=== PATIENT | male | born 1995 | race Caucasian/White ===

== ENCOUNTER 2017-05-31 23:16 | Emergency (ER) | payer OTHER ==
[2017-05-31 23:29] VITALS: BP 125/72; PULSE 55; TEMP 97.3; BMI 23.0
[2017-05-31] MEDS ORDERED: ONDANSETRON 4 MG/2 ML VIAL IVPUSH ONE (23:42)
[2017-05-31] MEDS ORDERED: SODIUM CHLORIDE 0.9% 1000 ML INFUS.BAG IV ONE (23:43)
[2017-06-01] MEDS ORDERED: ONDANSETRON 4 MG/2 ML VIAL ONE (00:16)
[2017-06-01] MEDS ORDERED: PANTOPRAZOLE SODIUM 40 MG VIAL IVPUSH ONE (00:27)
--- NOTE | 2017-06-01 00:29 | PDOC ---
History of Present Illness - General Chief Complaint: Nausea/Vomiting Stated Complaint: VOMITING Time Seen by Provider: 05/31/17 23:41 - History of Present Illness Initial Comments: 06/01/17 00:28 CHIEF COMPLAINT: vomiting HISTORY OF PRESENT ILLNESS: 22 yo M with no PMH presents to ED with abdominal pain and vomiting since tonight after eating dinner with family for his birthday. Patient denies any recent travel or sick contacts. Patient states he ate mussels, chicken salad, and pizza. Patient reports feeling a "burning sensation to my chest." PAST MEDICAL HISTORY: Denies past medical history FAMILY HISTORY: Denies SOCIAL HISTORY: Denies tobacco, alcohol, illicit drug use. SURGICAL HISTORY: Denies ALLERGIES: No known drug allergies REVIEW OF SYSTEMS General/Constitutional: Denies fever or chills. Denies weakness. HEENT: Denies change in vision. Denies ear pain or discharge. Denies sore throat. Cardiovascular: Denies chest pain or shortness of breath. Respiratory: Denies cough, wheezing, or hemoptysis. Gastrointestinal: Vomting tonight. Denies diarrhea. Genitourinary: Denies dysuria, frequency, or change in urination. Musculoskeletal: Denies joint or muscle swelling or pain. Denies neck or back pain. Skin and breasts: Denies rash or easy bruising. PHYSICAL EXAM General Appearance: Well-appearing, appropriately dressed. No apparent distress. HEENT: EOMI, PERRLA. No conjunctival pallor. No photophobia, scleral icterus. ] Respiratory/Chest: Lungs CTAB. Cardiovascular: RRR. S1, S2. Gastrointestinal/Abdominal: Normal bowel sounds. Abdomen soft, non-distended. No tenderness or rebound tenderness. No organomegaly, pulsatile mass, guarding , hernia, hepatomegaly, splenomegaly. Musculoskeletal/Extremities: Normal inspection. FROM of all extremities, normal capillary refill. Pelvis Stable. No CVA tenderness. No tenderness to extremities, pedal edema, swelling, erythema or deformity. Integumentary: Appropriate color, dry, warm. No cyanosis, erythema, jaundice or rash Neurologic: news editor II-XII intact. Fully oriented, alert. Appropriate mood/affect. Motor strength 5/5. No appreciable EOM palsy, facial droop or sensory deficit. ] Past History - Past Medical History Allergies/Adverse Reactions: Allergies Allergy/AdvReac Type Severity Reaction Status Date / Time No Known Allergies Allergy Verified 05/21/16 19:36 Home Medications: Ambulatory Orders Ondansetron [Zofran *Odt*] 8 mg SL TID PRN #21 od.tablet 06/01/17 Pantoprazole Sodium [Protonix] 40 mg PO DAILY #14 tablet. 06/01/17 - Suicide/Smoking/Psychosocial Hx Smoking History: Current every day smoker Have you smoked in the past 12 months: No Number of Cigarettes Smoked Daily: 5 Information on smoking cessation initiated: No Hx Alcohol Use: No Drug/Substance Use Hx: No Substance Use Type: None *Physical Exam - Vital Signs Last Vital Signs Temp Pulse Resp BP Pulse Ox 97.3 F L 55 L 18 125/72 100 05/31/17 23:23 05/31/17 23:23 05/31/17 23:23 05/31/17 23:23 05/31/17 23:23 ED Treatment Course - Medications Given in the ED: ED Medications Discontinued Medications Generic Name Dose Route Start Last Admin Trade Name Freq PRN Reason Stop Dose Admin Ondansetron HCl 4 mg 05/31/17 23:42 06/01/17 00:25 Zofran Injection IVPUSH 05/31/17 23:43 4 mg ONCE ONE Administration Sodium Chloride 1,000 ml 05/31/17 23:43 06/01/17 00:25 Normal Saline - IV 05/31/17 23:44 1,000 ml ONCE ONE Administration Medical Decision Making - Medical Decision Making 06/01/17 00:32 22 yo M with no PMH presents to ED with abdominal pain and vomiting since tonight after eating dinner with family for his birthday. -IVF, zofran, pepcid, protonix *DC/Admit/Observation/Transfer Diagnosis at time of Disposition: Gastroenteritis - Discharge Dispostion Disposition: HOME Condition at time of disposition: Stable Admit: No - Prescriptions Prescriptions: Ondansetron [Zofran *Odt*] 8 mg SL TID PRN #21 od.tablet PRN Reason: Nausea And/Or Vomiting Pantoprazole Sodium [Protonix] 40 mg PO DAILY #14 tablet. - Referrals Referrals: Peyton Ewing MD [Primary Care Provider] - - Patient Instructions Printed Discharge Instructions: DI for Vomiting -- Adult, DI for Gastroesophageal Reflux Disease (GERD) Additional Instructions: Please take medications as prescribed. Follow up with your primary care doctor by the end of next week. If you develop any persistent vomiting, fever, chills , diarrhea, or any new or worsening symptoms, please return to the ER. - Post Discharge Activity
[2017-06-01] MEDS ORDERED: FAMOTIDINE IV 20 MG/12 ML VIAL IVPUSH SCH (00:30)
[2017-06-01] MEDS ORDERED: FAMOTIDINE 20 MG/50 ML IVPB 20 MG/50 ML MG IVPB ONE (00:45)
[2017-06-01] MEDS ORDERED: PANTOPRAZOLE SODIUM 40 MG/100 ML BAG IVPB ONE (00:45)
--- NOTE | 2017-06-01 00:52 | PDOC ---
*Physical Exam - Vital Signs Last Vital Signs Temp Pulse Resp BP Pulse Ox 97.3 F L 55 L 18 125/72 100 05/31/17 23:23 05/31/17 23:23 05/31/17 23:23 05/31/17 23:23 05/31/17 23:23 ED Treatment Course - Medications Given in the ED: ED Medications Discontinued Medications Generic Name Dose Route Start Last Admin Trade Name Freq PRN Reason Stop Dose Admin Ondansetron HCl 4 mg 05/31/17 23:42 06/01/17 00:25 Zofran Injection IVPUSH 05/31/17 23:43 4 mg ONCE ONE Administration Pantoprazole Sodium 40 mg 06/01/17 00:27 06/01/17 00:48 Protonix Iv IVPUSH 06/01/17 00:28 40 mg ONCE ONE Administration Sodium Chloride 1,000 ml 05/31/17 23:43 06/01/17 00:25 Normal Saline - IV 05/31/17 23:44 1,000 ml ONCE ONE Administration Medical Decision Making - Medical Decision Making 06/01/17 00:52 agree with care from DI [facility] *DC/Admit/Observation/Transfer Diagnosis at time of Disposition: Gastroenteritis - Discharge Dispostion Disposition: HOME Condition at time of disposition: Stable - Prescriptions Prescriptions: Ondansetron [Zofran *Odt*] 8 mg SL TID PRN #21 od.tablet PRN Reason: Nausea And/Or Vomiting Pantoprazole Sodium [Protonix] 40 mg PO DAILY #14 tablet.dr - Referrals Referrals: Peyton Ewing MD [Primary Care Provider] - - Patient Instructions Printed Discharge Instructions: DI for Gastroesophageal Reflux Disease (GERD), DI for Vomiting -- Adult Additional Instructions: Please take medications as prescribed. Follow up with your primary care doctor by the end of next week. If you develop any persistent vomiting, fever, chills , diarrhea, or any new or worsening symptoms, please return to the ER. - Post Discharge Activity
== END 2017-06-01 02:26 | disposition home or self-care (01) ==
LOC: JER 23:16
PROC: 3E033GC Introduction of Other Therapeutic Substance into Peripheral Vein, Percutaneous Approach (ICD-10-PCS; principal; 2017-05-31)
DX: K52.9 Noninfective gastroenteritis and colitis, unspecified (principal)
CPT/HCPCS: 99281-25

== ENCOUNTER 2018-02-20 19:54 | Emergency (ER) | payer OTHER ==
[2018-02-20] MEDS ORDERED: ONDANSETRON *ODT* 4 MG TABLET SL ONE (20:05)
--- NOTE | 2018-02-20 20:05 | PDOC ---
Rapid Medical Evaluation Chief Complaint: Nausea/Vomiting Time Seen by Provider: 02/20/18 20:03 Medical Evaluation: Allergies Allergy/AdvReac Type Severity Reaction Status Date / Time No Known Allergies Allergy Verified 05/21/16 19:36 02/20/18 20:03 c/o nausea vomiting after eating sandwich half hour prior to arrival PE: patient alert ox3 A; gastroenteritis P: zofran patient to the ER further management of care. 02/20/18 20:05 Discharge Disposition - Diagnosis Gastroenteritis - Referrals - Patient Instructions - Post Discharge Activity
[2018-02-20 20:06] VITALS: BP 134/68; PULSE 72; TEMP 97.8; BMI 21.7
[2018-02-20] MEDS ORDERED: ONDANSETRON *ODT* 4 MG TABLET ONE (20:40)
--- NOTE | 2018-02-20 20:53 | PDOC ---
History of Present Illness - General Chief Complaint: Nausea/Vomiting Stated Complaint: Nausea/Vomiting/ABD PAIN Time Seen by Provider: 02/20/18 20:03 History Source: Patient, Parent(s) (Mother present for interview.) Exam Limitations: No Limitations - History of Present Illness Initial Comments: 22 y/o male presenting to [facility] ER via private auto complaining of nausea, vomiting, and diarrhea for the past two hours. Endorses subjective fever, chills , and diaphoresis. Symptoms started after he ate a sandwich from a restaurant. Emesis described as mostly containing food particulate, nonbloody and nonbilious. Diarrhea described as watery and nonbloody. Pt denies abdominal pain , lightheadedness, dizziness, chest pain, or syncope. Pt took PO Zofran prior to arrival but vomited shortly after. PCP: [facility] Hx: - Pt denies past medical history. Denies prescription medications. Surgical Hx: - Pt denies surgical history. Social Hx: - EtOH: Infrequent. - Tobacco: smokes 6 cigerettes per day. - Street Drugs: Denies Past History - Past Medical History Allergies/Adverse Reactions: Allergies Allergy/AdvReac Type Severity Reaction Status Date / Time No Known Allergies Allergy Verified 02/20/18 20:06 Home Medications: Ambulatory Orders Ondansetron [Zofran *Odt*] 8 mg SL TID PRN #21 od.tablet 02/20/18 COPD: No - Suicide/Smoking/Psychosocial Hx Smoking History: Never smoked Have you smoked in the past 12 months: No Number of Cigarettes Smoked Daily: 5 Information on smoking cessation initiated: No Hx Alcohol Use: No Drug/Substance Use Hx: No Substance Use Type: None Review of Systems - Review of Systems Able to Perform ROS?: Yes Is the patient limited Hungarian proficient: No Constitutional: Yes: Chills, Diaphoresis, Fever HEENTM: No: Recent change in vision, Throat Swelling, Mouth Pain, Difficulty Swallowing, Mouth Swelling Respiratory: No: Shortness of Breath Cardiac (ROS): No: Chest Pain, Lightheadedness, Palpitations, Syncope ABD/GI: Yes: See HPI, Diarrhea, Nausea, Vomiting, Indigestion. No: Blood Streaked Bowels, Constipated, Rectal Bleeding, Abdominal cramping : No: Burning, Dysuria, Discharge, Frequency, Flank Pain, Hematuria Musculoskeletal: No: Back Pain Integumentary: No: Bruising, Erythema, Rash Neurological: No: Headache, Numbness, Paresthesia, Weakness, Dizziness Hematologic/Lymphatic: No: Easy Bleeding, Easy Bruising *Physical Exam - Vital Signs Last Vital Signs Temp Pulse Resp BP Pulse Ox 97.8 F 72 16 134/68 100 02/20/18 20:05 02/20/18 20:05 02/20/18 20:05 02/20/18 20:05 02/20/18 20:05 - Physical Exam Comments: Constitutional: Well-developed, well-nourished male in no acute distress but obvious discomfort. Found sitting upright on edge of hospital bed. Alert and oriented x4. Answered all questions appropriately and completely. Speech was non -labored, non-pressured. Pt actively vomited without intense retching during exam, no blood or bile. HEENT: Normocephalic. No obvious external signs of trauma. Hearing grossly normal. No nasal discharge. Sclerae white. Conjunctiva moist and not injected. Oral cavity and pharynx normal. No inflammation, swelling, exudate, or lesions. Teeth and gingiva in good general condition. Neck is supple, trachea is midline. No JVD. Cardiovascular: Regular rate and regular rhythm. No murmur, rubs, clicks, or gallops. Peripheral pulses: Radial pulses full. Respiratory: Breathing unlabored. Equal chest rise and fall. Clear to auscultation bilaterally. No stridor, no wheezing, no rhonchi. Gastrointestinal: abdomen is soft, non-tender, non-distended. No hepatosplenemegaly. No pulsatile masses. No overlying skin lesions or obvious signs of trauma. Neuro: Alert and oriented. Moving all four extremities spontaneously. Skin: Warm, dry, and intact. No bruising, rashes, or other lesions. : No R or L CVA tenderness. Psych: Affect: appropriate. Mood: normal. ED Treatment Course - LABORATORY CBC & Chemistry Diagram: 02/20/18 21:25 02/20/18 21:25 - Medications Given in the ED: ED Medications Discontinued Medications Generic Name Dose Route Start Last Admin Trade Name Freq PRN Reason Stop Dose Admin Ondansetron HCl 4 mg 02/20/18 20:05 02/20/18 20:44 Zofran Odt - SL 02/20/18 20:06 4 mg ONCE ONE Administration Medical Decision Making - Medical Decision Making *Reviewed nursing notes and prior visit documentation. 22 y/o complaining of nausea, vomiting, and diarrhea for the past two hours. No pertinent PMH. Afebrile. Vitals unremarkable for hypotension or tachycardia. Benign physical exam. Suspect likely viral gastroenteritis. Low suspicion for Boerhaave's syndrome. Low suspicion for neurogenic cause. Low suspicion for hepatitis, pancreatitis, cholecystitis without abdominal pain. Will treat symptomatically with ODT zofran. Suspect pt vomited up PO zofran taken prior to arrival. Pt vomited and spit out ODT zofran. Will give IV zofran and NS IVFB. Will obtain CBC and BMP. Low suspicion for metabolic derangement or hepatitis. CBC revealed mild leukocytosis. Suspect secondary to vomiting. No prior results to compare. CMP unremarkable for electrolyte derangement. LFTs not elevated. Pt continuing to complaining of persistent nausea with some vomiting. No abdominal pain. No diarrhea. 02/20/18 22:26 Pt signed out to resident Dr. Pickens after he was verbally appraised of the pt's HPI and current condition. *DC/Admit/Observation/Transfer Diagnosis at time of Disposition: Gastroenteritis - Prescriptions Prescriptions: Ondansetron [Zofran *Odt*] 8 mg SL TID PRN #21 od.tablet PRN Reason: Nausea And/Or Vomiting - Referrals Referrals: Peyton Ewing MD [Primary Care Provider] - - Patient Instructions - Post Discharge Activity
[2018-02-20] MEDS ORDERED: ONDANSETRON 4 MG/2 ML VIAL IVPB ONE (21:09)
[2018-02-20] MEDS ORDERED: SODIUM CHLORIDE 0.9% 500 ML INFUS.BAG IV ONE (21:09)
[2018-02-20] MEDS ORDERED: ONDANSETRON 4 MG/2 ML VIAL ONE (21:18)
[2018-02-20 21:35] LABS: BASO % 0.6 % (0-2.0); EOS % 0.1 % (0-4.5); HEMATOCRIT 44.7 % (35.4-49); HEMOGLOBIN 15.3 GM/dL (11.7-16.9); LYMPH % 12.4 % (8-40); MCH 28.8 pg (25.7-33.7); MCHC 34.1 g/dl (32.0-35.9); MEAN CELL VOLUME 84.3 fl (80-96); MEAN PLT VOLUME 7.5 fl (7.5-11.1); MONO % 4.1 % (3.8-10.2); NEUT % 82.8 % (42.8-82.8); PLATELET COUNT 293 K/MM3 (134-434); RDW 12.8 % (11.9-15.9); WHITE BLOOD COUNT 15.8 K/mm3 (4.0-10.0)
[2018-02-20 22:02] LABS: ALBUMIN 4.9 g/dl (3.4-5.0); ALK PHOS 89 U/L (45-117); ANION GAP 14 MMOL/L (8-16); BILIRUBIN,TOTAL 0.5 mg/dL (0.2-1.0); BLOOD UREA NITROGEN 13 mg/dL (7-18); CALCIUM 9.8 mg/dL (8.5-10.1); CHLORIDE 104 mmol/L (98-107); CO2 22 mmol/L (21-32); CREATININE 1.1 mg/dL (0.7-1.3); GLUCOSE,RANDOM 114 mg/dL (74-106); POTASSIUM 3.4 mmol/L (3.5-5.1); SGOT/AST 26 U/L (15-37); SGPT/ALT 40 U/L (12-78); SODIUM 140 mmol/L (136-145); TOT PROT 8.2 g/dl (6.4-8.2)
[2018-02-20] MEDS ORDERED: METOCLOPRAMIDE HCL INJECTION 10 MG/2 ML VIAL IVPUSH ONE (23:03)
[2018-02-20] MEDS ORDERED: METOCLOPRAMIDE HCL INJECTION 10 MG/2 ML VIAL ONE (23:12)
--- NOTE | 2018-02-20 23:36 | PDOC ---
*Physical Exam - Vital Signs Last Vital Signs Temp Pulse Resp BP Pulse Ox 97.8 F 72 16 134/68 100 02/20/18 20:05 02/20/18 20:05 02/20/18 20:05 02/20/18 20:05 02/20/18 20:05 ED Treatment Course - LABORATORY CBC & Chemistry Diagram: 02/20/18 21:25 02/20/18 21:25 - ADDITIONAL ORDERS Additional order review: Laboratory Results 02/20/18 21:25 Sodium 140 Potassium 3.4 L Chloride 104 Carbon Dioxide 22 Anion Gap 14 BUN 13 Creatinine 1.1 Creat Clearance w eGFR > 60 Random Glucose 114 H Calcium 9.8 Total Bilirubin 0.5 AST 26 ALT 40 Alkaline Phosphatase 89 Total Protein 8.2 Albumin 4.9 02/20/18 21:25 RBC 5.30 MCV 84.3 MCHC 34.1 RDW 12.8 MPV 7.5 Neutrophils % 82.8 Lymphocytes % 12.4 Monocytes % 4.1 Eosinophils % 0.1 Basophils % 0.6 - Medications Given in the ED: ED Medications Discontinued Medications Generic Name Dose Route Start Last Admin Trade Name Freq PRN Reason Stop Dose Admin Ondansetron HCl 4 mg 02/20/18 20:05 02/20/18 20:44 Zofran Odt - SL 02/20/18 20:06 4 mg ONCE ONE Administration Ondansetron HCl 8 mg 02/20/18 21:09 02/20/18 21:30 Zofran Injection IVPB 02/20/18 21:10 8 mg ONCE ONE Administration Sodium Chloride 1,000 ml 02/20/18 21:09 02/20/18 21:29 Normal Saline - IV 02/20/18 21:10 1,000 ml ONCE ONE Administration Medical Decision Making - Medical Decision Making 02/20/18 23:[address] Ramirez. Patient is 22M with no significant medical history that is here with nausea, vomiting, and diarrhea. Given fluids, zofran 8. EKG shows sinus rhythm wth sinus arrhythmia. MD 108. QTc 431. Normal axis. No st elevations/depressions. Normal t wave morphology. Still nauseated, given reglan and benadryl. *DC/Admit/Observation/Transfer Diagnosis at time of Disposition: Vomiting - Discharge Dispostion Disposition: HOME Condition at time of disposition: Good Decision to Admit order: No - Prescriptions Prescriptions: Ondansetron [Zofran *Odt*] 8 mg SL TID PRN #21 od.tablet PRN Reason: Nausea And/Or Vomiting - Referrals Referrals: Peyton Ewing MD [Primary Care Provider] - - Patient Instructions Printed Discharge Instructions: DI for Vomiting -- Adult Additional Instructions: Please return if you have any new, worsening or concerning symptoms. Please follow up with your primary care doctor this week. - Post Discharge Activity Forms/Work/School Notes: Back to School
[2018-02-20] MEDS ORDERED: LORazepam 2 MG/ML SDV VIAL ONE (23:59)
--- NOTE | 2018-02-21 11:49 | EKG ---
Test Reason : Blood Pressure : / mmHG Vent. Rate : 063 BPM Atrial Rate : 063 BPM P-R Int : 108 ms QRS Dur : 090 ms QT Int : 422 ms P-R-T Axes : 054 081 065 degrees QTc Int : 431 ms SINUS RHYTHM WITH MARKED SINUS ARRHYTHMIA WITH SHORT IA OTHERWISE NORMAL ECG NO PREVIOUS ECGS AVAILABLE Confirmed by SEVERIANO CARRASCO MD ([id number]) on 02/21/2018 11:49:36 AM Referred By: Confirmed By:SEVERIANO CARRASCO MD
== END 2018-02-21 01:08 | disposition home or self-care (01) ==
LOC: JER 19:54
PROC: 3E033GC Introduction of Other Therapeutic Substance into Peripheral Vein, Percutaneous Approach (ICD-10-PCS; principal; 2018-02-20)
PROC: 3E033GC Introduction of Other Therapeutic Substance into Peripheral Vein, Percutaneous Approach (ICD-10-PCS; 2018-02-20)
PROC: 3E033GC Introduction of Other Therapeutic Substance into Peripheral Vein, Percutaneous Approach (ICD-10-PCS; 2018-02-20)
PROC: 3E033NZ Introduction of Analgesics, Hypnotics, Sedatives into Peripheral Vein, Percutaneous Approach (ICD-10-PCS; 2018-02-20)
DX: K52.9 Noninfective gastroenteritis and colitis, unspecified (principal)
CPT/HCPCS: 36415; 80053; 85025; 93005; 93010; 96374; 96375; 99282-25; Q0162

== ENCOUNTER 2018-03-27 13:52 | Emergency (ER) | payer OTHER ==
--- NOTE | 2018-03-27 13:54 | PDOC ---
History of Present Illness - General Chief Complaint: Nausea/Vomiting Stated Complaint: NAUSEA, VOMITING Time Seen by Provider: 03/27/18 13:54 - History of Present Illness Initial Comments: 03/27/18 14:03 The patient is a 22 year old male with no significant PMH who presents for evaluation of nausea and vomiting. The patient reports a 1 hour history of worsening nausea with associated multiple episodes of non-bilious, non-bloody vomiting prompting his presentation to the ED for further evaluation. He notes a burning sensation with the associated nausea as well. He states that he had similar symptoms 1 month ago and was diagnosed with a viral gastro at that time with improvement in his symptoms after zofran, fluids, benadryl, and reglan. He otherwise denies fevers, chills, SOB, chest pain, abdominal pain, or changes with urination or bowel movements. Past History - Past Medical History Allergies/Adverse Reactions: Allergies Allergy/AdvReac Type Severity Reaction Status Date / Time No Known Allergies Allergy Verified 03/27/18 13:52 Home Medications: Ambulatory Orders Ondansetron [Zofran *Odt*] 8 mg SL TID PRN #21 od.tablet 03/27/18 COPD: No - Suicide/Smoking/Psychosocial Hx Smoking History: Never smoked Have you smoked in the past 12 months: No Number of Cigarettes Smoked Daily: 5 Hx Alcohol Use: No Drug/Substance Use Hx: No Substance Use Type: None Review of Systems - Review of Systems Comments:: 03/27/18 14:07 Constitutional: No fevers, chills, fatigue, malaise HEENT: No Rhinorrhea, nasal congestion, visual changes Cardiovascular: No chest pain, syncope, palpitations, lightheadedness Respiratory: No Cough, SOB, Hemoptysis, Gastrointestinal: Nausea, vomiting. No Abdominal pain, Constipation, Diarrhea, Melena Genitourinary: No Dysuria, Frequency, Urgency, Hesitancy, Hematuria, Flank pain Musculoskeletal: No Myalgia, arthralgia Skin: No rashes, itching, bruising, pallor Neurologic: No Headache, Dizziness, Numbness, Weakness, or Tingling Psychiatric: No Hallucinations. No SI or HI *Physical Exam - Physical Exam Comments: 03/27/18 14:07 General Appearance: Nourished. No Apparent Distress HEENT: No Pharyngeal Erythema, Tonsillar Exudate, Tonsillar Erythema Neck: No Cervical Lymphadenopathy Respiratory/Chest: Lungs Clear, Normal Breath Sounds. No Crackles, Rales, Rhonchi, Wheezing Cardiovascular: Regular Rhythm, Regular Rate. No Murmur, Gallops, Rubs Gastrointestinal/Abdominal: Normal Bowel Sounds, Soft. No Guarding, Rebound, Tenderness Musculoskeletal: No CVA Tenderness Extremity: Normal Capillary Refill Integumentary: Normal Color, Dry, Warm Neurologic: Fully Oriented, Alert, Normal Mood/Affect, Normal Response, ED Treatment Course - LABORATORY CBC & Chemistry Diagram: 03/27/18 14:00 03/27/18 14:00 Medical Decision Making - Medical Decision Making 03/27/18 14:08 The patient is a 22 year old male with no significant PMH who presents for evaluation of nausea and vomiting. Differential includes but is not limited to : Gastroenteritis, GERD, Pancreatitis, Infectious, Metabolic Derangement. Given the patient's history and physical exam, it is likely the patient's symptoms are due to a gastroenteritis. However, we will obtain a cbc, cmp, lipase to evaluate further. We will treat with iv fluids, pepcid, zofran, benadryl, and reglan and continue to monitor and reassess while here in the ED. 03/27/18 16:11 CBC, cmp, lipase are unremarkable. The patient reports improvement in his symptoms and has tolerated PO intake. We are comfortable discharging the patient home with primary care provider follow up. We discussed the results, plan, and return precautions with the patient who voiced understanding and is agreeable with the plan. *DC/Admit/Observation/Transfer Diagnosis at time of Disposition: Vomiting Qualifiers: Vomiting type: unspecified Vomiting Intractability: unspecified Nausea presence : unspecified Qualified Code(s): R11.10 - Vomiting, unspecified - Discharge Dispostion Disposition: HOME Condition at time of disposition: Stable - Prescriptions Prescriptions: Ondansetron [Zofran *Odt*] 8 mg SL TID PRN #21 od.tablet PRN Reason: Nausea And/Or Vomiting - Referrals - Patient Instructions Printed Discharge Instructions: DI for Nausea -- Adult, DI for Vomiting -- Adult Additional Instructions: Please return to the ER if you experience concerning or worsening symptoms including worsening fevers, chills, or abdominal pain. Your lab results were normal here in the ER. Please call to schedule a follow up appointment with your primary care provider within 2-3 days to discuss your ER visit and further management of your symptoms. - Post Discharge Activity
[2018-03-27] MEDS ORDERED: ONDANSETRON 4 MG/2 ML VIAL IVPUSH ONE ×2 (14:00→15:35)
[2018-03-27] MEDS ORDERED: FAMOTIDINE 20 MG/50 ML IVPB 20 MG/50 ML MG IVPB ONE ×2 (14:00→14:11)
[2018-03-27] MEDS ORDERED: SODIUM CHLORIDE 1,000 ML IV STA ×2 (14:00→15:40)
[2018-03-27] MEDS ORDERED: METOCLOPRAMIDE HCL INJECTION 10 MG/2 ML VIAL IVPB ONE (14:02)
[2018-03-27] MEDS ORDERED: ONDANSETRON 4 MG/2 ML VIAL ONE ×2 (14:05→15:36)
[2018-03-27 14:10] VITALS: BP 135/78; PULSE 63; TEMP 98; BMI 23.0
[2018-03-27 14:34] LABS: BASO % 1.8 % (0-2.0); EOS % 0.2 % (0-4.5); HEMATOCRIT 47.9 % (35.4-49); HEMOGLOBIN 16.2 GM/dl (11.7-16.9); MCH 29.3 pg (25.7-33.7); MCHC 33.8 g/dl (32.0-35.9); MEAN CELL VOLUME 86.8 fl (80-96); MEAN PLT VOLUME 8.1 fl (7.5-11.1); MONO % 6.5 % (3.8-10.2); NEUT % 74.5 % (42.8-82.8); PLATELET COUNT 319 K/MM3 (134-434); RBC 5.52 M/mm3 (4.00-5.60); RDW 11.9 % (11.9-15.9); WHITE BLOOD COUNT 13.3 K/mm3 (4.0-10.8)
--- NOTE | 2018-03-27 15:20 | PDOC ---
Attending Attestation - Resident Resident Name: Damir Foster - ED Attending Attestation I have performed the following: I have examined & evaluated the patient, The case was reviewed & discussed with the resident, I agree w/resident's findings & plan, Exceptions are as noted - HPI HPI: 03/27/18 18:55 Reviewed Residents HPI - Physicial Exam PE: 03/27/18 18:55 Reviewed Residents PE - Medical Decision Making 03/27/18 18:55 Benign abdominal examination no rebound no guarding no tenderness to palpation Laboratory analysis reviewed Nausea with multiple episodes of vomiting and no abdominal pain Status post check cocktail patient feels less nauseous now able to tolerate fluids with no additional vomiting History examination at this time given no abdominal pain is likely viral illness Very strict early appendicitis instructions discussed with patient he'll return to the ED should symptoms worsen should he develop any abdominal pain or for any concerns. Findings, the need for follow-up and strict return instructions discussed with patient.
[2018-03-27 15:56] LABS: ALBUMIN 4.9 g/dl (3.4-5.0); ALK PHOS 93 U/L (45-117); ANION GAP 9 MMOL/L (8-16); BILIRUBIN,TOTAL 0.5 mg/dL (0.2-1); BLOOD UREA NITROGEN 5 mg/dL (7-18); CALCIUM 10.5 mg/dL (8.5-10.1); CHLORIDE 108 mmol/L (98-107); CO2 22 mmol/L (21-32); CREATININE 0.9 mg/dL (0.55-1.3); GLUCOSE,RANDOM 100 mg/dL (74-106); LIPASE 336 U/L (73-393); POTASSIUM 3.9 mmol/L (3.5-5.1); SGOT/AST 12 U/L (15-37); SGPT/ALT 21 U/L (13-61); SODIUM 139 mmol/L (136-145); TOT PROT 8.3 g/dl (6.4-8.2)
== END 2018-03-27 16:30 | disposition home or self-care (01) ==
LOC: FER 13:52
PROC: 3E033GC Introduction of Other Therapeutic Substance into Peripheral Vein, Percutaneous Approach (ICD-10-PCS; principal; 2018-03-27)
PROC: 3E0337Z Introduction of Electrolytic and Water Balance Substance into Peripheral Vein, Percutaneous Approach (ICD-10-PCS; 2018-03-27)
DX: R11.10 Vomiting, unspecified (principal); K21.9 Gastro-esophageal reflux disease without esophagitis
CPT/HCPCS: 36415; 80053; 83690; 85025; 96361; 96365; 96375; 96376; 99284-25; J7030

== ENCOUNTER 2018-06-10 13:47 | Emergency (ER) | payer OTHER ==
[2018-06-10] MEDS ORDERED: ONDANSETRON 4 MG/2 ML VIAL IVPUSH ONE ×2 (14:04→14:56)
[2018-06-10] MEDS ORDERED: SODIUM CHLORIDE 1,000 ML IV STA ×2 (14:04→14:56)
[2018-06-10 14:05] VITALS: BP 105/78; PULSE 50; TEMP 97.4; BMI 22.4
[2018-06-10] MEDS ORDERED: ONDANSETRON 4 MG/2 ML VIAL ONE ×2 (14:05→14:57)
--- NOTE | 2018-06-10 14:09 | PDOC ---
History of Present Illness - General Chief Complaint: Nausea/Vomiting Stated Complaint: NAUSEA AND VOMITING Time Seen by Provider: 06/10/18 13:56 History Source: Patient Exam Limitations: No Limitations - History of Present Illness Travel History: No Initial Comments: 06/10/18 14:05 23 y/o male with N/V today. Denies back pain, abdominal pain or diarrhea. No weakness, fever or chills. Denies fall or trauma. No headache. No sick contacts , traveling or bad food. Patient states taht this happens every few months for last 1 1/2 years. Has not seen specialist for this. Timing/Duration: reports: constant Quality: reports: mild Pain Radiation: reports: no radiation Activities at Onset: reports: none Alleviating Factors: improves with: Vomiting Past History - Past Medical History Allergies/Adverse Reactions: Allergies Allergy/AdvReac Type Severity Reaction Status Date / Time No Known Allergies Allergy Verified 06/10/18 13:58 Home Medications: Ambulatory Orders Ondansetron [Zofran *Odt*] 8 mg SL TID PRN #21 od.tablet 03/27/18 Ondansetron [Zofran Odt -] 4 mg SL TID #21 od.tablet 06/10/18 COPD: No - Suicide/Smoking/Psychosocial Hx Smoking History: Never smoked Have you smoked in the past 12 months: No Number of Cigarettes Smoked Daily: 5 'Breaking Loose' booklet given: 03/27/18 Hx Alcohol Use: No Drug/Substance Use Hx: No Substance Use Type: None Review of Systems - Review of Systems Able to Perform ROS?: Yes Is the patient limited Hungarian proficient: No Constitutional: No: Chills, Fever HEENTM: No: Throat Pain, Throat Swelling, Mouth Swelling Respiratory: No: Cough, Shortness of Breath Cardiac (ROS): No: Chest Pain ABD/GI: Yes: Nausea, Vomiting. No: Abdominal Distended, Diarrhea : No: Burning Neurological: No: Headache, Dizziness All Other Systems: Reviewed and Negative *Physical Exam - Physical Exam General Appearance: Yes: Nourished, Appropriately Dressed, Mild Distress. No: Disheveled HEENT: positive: EOMI, [place], Normal ENT Inspection, Normal Voice, Symmetrical, Pharynx Normal Neck: positive: Trachea midline, Normal Thyroid, Supple. negative: Tender, Rigid Respiratory/Chest: positive: Lungs Clear, Normal Breath Sounds. negative: Chest Tender, Respiratory Distress Cardiovascular: positive: Regular Rhythm, Regular Rate, S1, S2. negative: Edema , JVD, Murmur Vascular Pulses: Femoral (R): 4+, Femoral (L): 4+, Carotid (R): 4+, Carotid (L) : 4+, Dorsalis-Pedis (R): 4+, Doralis-Pedis (L): 4+ Gastrointestinal/Abdominal: positive: Normal Bowel Sounds, Flat, Soft. negative : Tender, Organomegaly, Pulsatile Mass (no RLQ, no LLQ tenderness, no RUQ or LUQ tenderness +BS) Lymphatic: negative: Adenopathy, Tenderness, Other Musculoskeletal: positive: Normal Inspection. negative: CVA Tenderness Extremity: positive: Normal Capillary Refill, Normal Inspection, Normal Range of Motion Integumentary: positive: Normal Color, Dry, Warm Neurologic: positive: metrology technician II-XII NML intact, Fully Oriented, Alert, Normal Mood/ Affect, Normal Response, Motor Strength 10/14 ED Treatment Course - LABORATORY CBC & Chemistry Diagram: 06/10/18 14:15 06/10/18 14:15 - ADDITIONAL ORDERS Additional order review: 06/10/18 14:08 Patient with vomiting, will give IVF and Zofran Check labs Progress Note - Progress Note Progress Note: Patient doing better after Zofran x2 adn IVF x2 Patient will need follow up with PMD GI referral If worsen return to ER *DC/Admit/Observation/Transfer Diagnosis at time of Disposition: Cyclical vomiting syndrome Qualifiers: Vomiting Intractability: unspecified Nausea presence: with nausea Qualified Code(s): G43.A0 - Cyclical vomiting, not intractable - Discharge Dispostion Disposition: HOME Condition at time of disposition: Improved Decision to Admit order: No - Referrals Referrals: Alon Palacio MD [Staff Physician] - - Patient Instructions Printed Discharge Instructions: DI for Vomiting -- Adult Additional Instructions: Fluids, rest, Motrin Repeat LFT in 1 week Zofran 4 mg ODT every 8 hr as needed Follow up with [facility] [facility] If worsen return to ER - Post Discharge Activity
[2018-06-10 14:33] LABS: BASO % 0.8 % (0-2.0); EOS % 0.3 % (0-4.5); HEMATOCRIT 46.7 % (35.4-49); HEMOGLOBIN 15.6 GM/dl (11.7-16.9); LYMPH % 21.8 % (8-40); MCH 29.4 pg (25.7-33.7); MCHC 33.5 g/dl (32.0-35.9); MEAN CELL VOLUME 87.9 fl (80-96); MEAN PLT VOLUME 7.8 fl (7.5-11.1); MONO % 15.7 % (3.8-10.2); NEUT % 61.4 % (42.8-82.8); PLATELET COUNT 270 K/MM3 (134-434); RBC 5.31 M/mm3 (4.00-5.60); RDW 12.7 % (11.9-15.9); WHITE BLOOD COUNT 8.2 K/mm3 (4.0-10.8)
[2018-06-10 14:49] LABS: ALBUMIN 4.7 g/dl (3.5-5.0); ALK PHOS 83 U/L (32-92); ANION GAP 13 MMOL/L (8-16); BILIRUBIN,TOTAL 0.6 mg/dl (0.2-1.0); BLOOD UREA NITROGEN 7 mg/dl (7-18); CALCIUM 9.6 mg/dl (8.4-10.2); CHLORIDE 103 mmol/L (98-107); CO2 25 mmol/L (22-28); CREATININE 0.7 mg/dl (0.6-1.3); GLUCOSE,RANDOM 105 mg/dl (74-106); POTASSIUM 4.2 mmol/L (3.5-5.1); SGOT/AST 58 U/L (10-42); SGPT/ALT 55 U/L (10-40); SODIUM 141 mmol/L (136-145); TOT PROT 7.7 g/dl (6.4-8.3)
== END 2018-06-10 15:53 | disposition home or self-care (01) ==
LOC: FER 13:47
PROC: 3E033GC Introduction of Other Therapeutic Substance into Peripheral Vein, Percutaneous Approach (ICD-10-PCS; principal; 2018-06-10)
PROC: 3E0337Z Introduction of Electrolytic and Water Balance Substance into Peripheral Vein, Percutaneous Approach (ICD-10-PCS; 2018-06-10)
DX: G43.A0 Cyclical vomiting, in migraine, not intractable (principal)
CPT/HCPCS: 36415; 80053; 85025; 96361; 96374; 96376; 99283-25; J7030

== ENCOUNTER 2018-07-10 10:04 | Emergency (ER) | payer OTHER ==
[2018-07-10] MEDS ORDERED: ASPIRIN 81 MG CHEWABLE TABLETS PO ONE (10:16)
[2018-07-10] MEDS ORDERED: FAMOTIDINE 20 MG/50 ML IVPB 20 MG/50 ML MG IVPB ONE ×2 (10:35→10:36)
[2018-07-10] MEDS ORDERED: ONDANSETRON 4 MG/2 ML VIAL ONE (10:36)
[2018-07-10] MEDS ORDERED: ONDANSETRON 4 MG/2 ML VIAL IVPUSH ONE (10:36)
--- NOTE | 2018-07-10 10:36 | PDOC ---
History of Present Illness - General Chief Complaint: Nausea/Vomiting Stated Complaint: VOMITING Time Seen by Provider: 07/10/18 10:06 History Source: Patient (Patient walked in complaining of nausea and vomiting of new onset as of this a.m Had similar symptoms in the past year, has appointment to see GI MD) Exam Limitations: No Limitations - History of Present Illness Timing/Duration: unsure, 24 hours Severity: moderate Associated Symptoms: reports: malaise, nausea/vomiting, weakness Past History - Travel Traveled outside of the country in the last 30 days: No Close contact w/someone who was outside of country & ill: No - Past Medical History Allergies/Adverse Reactions: Allergies Allergy/AdvReac Type Severity Reaction Status Date / Time No Known Allergies Allergy Verified 07/10/18 11:02 Home Medications: Ambulatory Orders Ondansetron [Zofran Odt -] 4 mg SL TID #21 od.tablet 06/10/18 Ondansetron HCl [Zofran] 4 mg PO Q6H PRN #24 tablet 07/10/18 Ranitidine [Zantac -] 150 mg PO DAILY #14 tablet 07/10/18 COPD: No GI Disorders: Yes - Suicide/Smoking/Psychosocial Hx Smoking History: Never smoked Have you smoked in the past 12 months: No Number of Cigarettes Smoked Daily: 5 'Breaking Loose' booklet given: 03/27/18 Hx Alcohol Use: No Drug/Substance Use Hx: No Substance Use Type: None Review of Systems - Review of Systems Able to Perform ROS?: Yes Is the patient limited [place] proficient: Yes Constitutional: Yes: Symptoms Reported, Malaise, Weakness HEENTM: No: Symptoms Reported, See HPI, Eye Pain, Blurred Vision, Tearing, Recent change in vision, Double Vision, Cataracts, Ear Pain, Ocular Prothesis, Ear Discharge, Nose Pain, Nose Congestion, Tinnitus, Nose Bleeding, Hearing Loss , Throat Pain, Throat Swelling, Mouth Pain, Dental Problems, Difficulty Swallowing, Mouth Swelling, Other Respiratory: No: Symptoms reported, See HPI, Cough, Orthopnea, Shortness of Breath, SOB with Exertion, SOB at Rest, Stridor, Wheezing, Productive cough, Hemoptysis, Other Cardiac (ROS): No: Symptoms Reported, See HPI, Chest Pain, Edema, Irregular Heart Rate, Lightheadedness, Palpitations, Syncope, Chest Tightness, Other ABD/GI: Yes: See HPI, Abdominal Distended, Diarrhea, Nausea, Poor Fluid Intake, Vomiting : No: Symptoms Reported, See HPI, Burning, Dysuria, Discharge, Frequency, Flank Pain, Hematuria, Incontinence, Pain, Urgency, Testicular Mass, Testicular Swelling, Lesions, Testicular Pain, Other Musculoskeletal: No: Symptoms Reported, See HPI, Back Pain, Gout, Joint Pain, Joint Swelling, Muscle Pain, Muscle Weakness, Neck Pain, Joint Stiffness, Other Integumentary: No: Symptoms Reported, See HPI, Bruising, Change in Color, Change in Hair/Nails, Dryness, Erythema, Flushing, Lesions, Lumps, Pallor, Pruritus, Rash, Sweating, Other Neurological: No: Symptoms reported, See HPI, Headache, Numbness, Paresthesia, Pre-Existing Deficit, Seizure, Tingling, Tremors, Weakness, Unsteady Gait, Ataxia, Dizziness, Other Psychiatric: Yes: Anxiety ED Treatment Course - LABORATORY CBC & Chemistry Diagram: 07/10/18 10:45 07/10/18 10:45 *DC/Admit/Observation/Transfer Diagnosis at time of Disposition: Vomiting - Discharge Dispostion Disposition: HOME Condition at time of disposition: Stable - Prescriptions Prescriptions: Ondansetron HCl [Zofran] 4 mg PO Q6H PRN #24 tablet PRN Reason: Nausea And/Or Vomiting Ranitidine [Zantac -] 150 mg PO DAILY #14 tablet - Referrals Referrals: Peyton Ewing MD [Primary Care Provider] - Marielle Hawk MD [Staff Physician] - - Patient Instructions Printed Discharge Instructions: DI for Nausea -- Adult, DI for Vomiting -- Adult Additional Instructions: Discharge Instructions: - You were seen in the emergency department for vomiting - You were given IV fluids and nausea medication - You had blood tests taken, but these were all normal Home Care: - You have been prescribed two medications to take at home. One is called ondansetron (zofran) which can be taken every 4-6 hours if you need it for nausea and vomiting. The other medication is called ranitidine. This is an acid medication and should be taken daily. - Make sure you are drinking plenty of fluids at home, even if you are not able to eat for a day or two. - Avoid dairy products, spicy foods, or acidic foods or drinks. Water, juice, sports drinks, and broth are good options. Follow Up: - Go to your scheduled follow up appointment with Dr Hawk (GI) - Seek immediate medical care if your symptoms do not improve, you are unable to eat or drink anything at all, or you have a large amount of blood in your vomit. - Post Discharge Activity
[2018-07-10 10:51] VITALS: BP 122/72; PULSE 55; BMI 23.0
--- NOTE | 2018-07-10 10:54 | PDOC ---
History of Present Illness - General Chief Complaint: Nausea/Vomiting Stated Complaint: VOMITING Time Seen by Provider: 07/10/18 10:06 - History of Present Illness Initial Comments: Dale Londono is an otherwise healthy 23yo man who presents with nausea and NBNB vomiting since he woke this morning. He reports at least 4 similar episodes over the past year. He states that he was feeling well yesterday when he went to bed. He did not have any new foods, dietary changes, recent travel, known sick contacts, though he is in college currently and does not know if classmates are sick. He does report occasional drinking and smokes 5 cigarettes per day, but he denies any additional substance use or medication. In addition to the vomiting, Mr Londono states that he felt very hot and sweaty, and he is now shivering. He denies any other recent or associated symptoms including fever/chills, cough, congestion, or diarrhea. He states that at his previous visits, he was told that he had "too much acid" in his stomach, but he was not taking any medication at home. He does endorse heartburn just prior to the emesis today. He notes that he has an appointment with Dr Hawk for evaluation scheduled, but has not seen anyone in GI yet. Mr Londono also requests an HIV test today. Past History - Past Medical History Allergies/Adverse Reactions: Allergies Allergy/AdvReac Type Severity Reaction Status Date / Time No Known Allergies Allergy Verified 07/10/18 11:02 Home Medications: Ambulatory Orders Ondansetron [Zofran Odt -] 4 mg SL TID #21 od.tablet 06/10/18 Ondansetron HCl [Zofran] 4 mg PO Q6H PRN #24 tablet 07/10/18 Ranitidine [Zantac -] 150 mg PO DAILY #14 tablet 07/10/18 COPD: No - Immunization History Immunization Up to Date: Yes - Suicide/Smoking/Psychosocial Hx Smoking History: Never smoked Have you smoked in the past 12 months: No Number of Cigarettes Smoked Daily: 5 'Breaking Loose' booklet given: 03/27/18 Hx Alcohol Use: No Drug/Substance Use Hx: No Substance Use Type: None Review of Systems - Review of Systems Comments:: General: No fevers, no chills, no weight or appetite change, no malaise HEENT: No changes in vision, no changes in hearing, no congestion, no sore throat CV: No chest pain, no palpitations, no LE edema Pulm: No SOB, no cough, no wheezing GI: +Nausea/vomiting, +heartburn, no change in bowel habits, no melena : No frequency, no urgency, no dysuria Musc: No back pain, no joint swelling, no recent injury Skin: No rash, no lesions, no erythema Endo: No excessive thirst, no heat/cold intolerance Heme: No unusual bruising or bleeding, no swollen glands Neuro: No syncope, no numbness/tingling, no focal weakness Vasc: No claudication Psych: No recent change in mood, no SI or HI *Physical Exam - Vital Signs Last Vital Signs Temp Pulse Resp BP Pulse Ox 97.5 F L 55 L 20 122/72 100 07/10/18 10:05 07/10/18 10:05 07/10/18 10:05 07/10/18 10:05 07/10/18 10:05 - Physical Exam Comments: General: No acute distress, slightly diaphoretic. Visibly shivering. HEENT: PERRL, EOMI, MMM, voice normal, normal neck ROM, no LAD Cards: RRR, no murmur appreciated Pulm: Comfortable on room air, clear to auscultation bilaterally Abd: Soft, nontender, nondistended Ext: Atraumatic. No LE edema. ROM intact. Strength 5/5 and equal bilaterally Vasc: Extremities WWP. Palpable radial and pedal pulses bilaterally Skin: Normal color, no rashes or lesions Neuro: A&Ox3, CN grossly intact, normal speech, motor/sensory grossly intact and symmetric Psych: Mood appropriate to situation Moderate Sedation - Procedure Monitoring Vital Signs: Procedure Monitoring Vital Signs Temperature 97.5 F L 07/10/18 10:05 Pulse Rate 55 L 07/10/18 10:05 Respiratory Rate 20 07/10/18 10:05 Blood Pressure 122/72 07/10/18 10:05 O2 Sat by Pulse Oximetry (%) 100 07/10/18 10:05 ED Treatment Course - LABORATORY CBC & Chemistry Diagram: 07/10/18 10:45 07/10/18 10:45 - Medications Given in the ED: ED Medications Discontinued Medications Generic Name Dose Route Start Last Admin Trade Name Dionne PRN Reason Stop Dose Admin Aspirin 81 mg 07/10/18 10:16 07/10/18 10:30 Asa - PO 07/10/18 10:17 Not Given ONCE ONE Medical Decision Making - Medical Decision Making 07/10/18 10:50 Dale Londono is an otherwise healthy 23yo man who presents with NBNB nausea , vomiting, and heartburn that started when he woke this morning. He has had several previous ED visits with similar symptoms, and he has a GI appointment scheduled in the near future. - Benign abdominal exam, reassuring that there is no acute abdominal process - Most likely gastritis v GERD. Denies alcohol or drug use, less likely secondary to substance use. Does report some alcohol use, will r/o pancreatitis - Unlikely to be electrolyte abnormalities or significant dehydration as he has only been vomiting for the past 1-2 hours, but will check electrolytes - Pt with shivering, slight diaphoresis on exam. No known sick contacts or respiratory symptoms, but is in college. Will check for flu - 1L NS bolus, zofran, pepcid for symptoms 07/10/18 11:29 - Feels somewhat improved but still vomiting after zofran, pepcid. Will give IV reglan for continued symptoms - CBC, chemistry reviewed. No abnormalities noted, LFTs and kidney function normal - Influenza and HIV pending 07/10/18 12:25 - Flu negative - Feeling better after reglan, requesting to be discharged - Mr Londono has an appointment scheduled with Dr Hawk next week, which he plans to go to for follow up. Discussed home care and return precautions, and he states understanding and agreement with the plan. Seen and discussed with Dr Iraheta. Darlyn Mcintyre PGY1 *DC/Admit/Observation/Transfer Diagnosis at time of Disposition: Vomiting - Discharge Dispostion Disposition: HOME Condition at time of disposition: Stable Decision to Admit order: No - Referrals Referrals: Peyton Ewing MD [Primary Care Provider] - Marielle Hawk MD [Staff Physician] - - Patient Instructions Printed Discharge Instructions: DI for Vomiting -- Adult Additional Instructions: Discharge Instructions: - You were seen in the emergency department for vomiting - You were given IV fluids and nausea medication - You had blood tests taken, but these were all normal Home Care: - You have been prescribed two medications to take at home. One is called ondansetron (zofran) which can be taken every 4-6 hours if you need it for nausea and vomiting. The other medication is called ranitidine. This is an acid medication and should be taken daily. - Make sure you are drinking plenty of fluids at home, even if you are not able to eat for a day or two. - Avoid dairy products, spicy foods, or acidic foods or drinks. Water, juice, sports drinks, and broth are good options. Follow Up: - Go to your scheduled follow up appointment with Dr Hawk (GI) - Seek immediate medical care if your symptoms do not improve, you are unable to eat or drink anything at all, or you have a large amount of blood in your vomit. - Post Discharge Activity
[2018-07-10 11:10] LABS: RBC 5.75 M/mm3 (4.00-5.60)
[2018-07-10 11:13] LABS: BASO % 0.7 % (0-2.0); EOS % 0.5 % (0-4.5); HEMATOCRIT 49.6 % (35.4-49); HEMOGLOBIN 16.6 GM/dl (11.7-16.9); LYMPH % 24.9 % (8-40); MCH 28.9 pg (25.7-33.7); MCHC 33.5 g/dl (32.0-35.9); MEAN CELL VOLUME 86.2 fl (80-96); NEUT % 66.9 % (42.8-82.8); PLATELET COUNT 283 K/MM3 (134-434); RDW 11.9 % (11.9-15.9); WHITE BLOOD COUNT 8.6 K/mm3 (4.0-10.8)
[2018-07-10 11:18] LABS: ALBUMIN 4.9 g/dl (3.4-5.0); ALK PHOS 86 U/L (45-117); ANION GAP 11 MMOL/L (8-16); BILIRUBIN,TOTAL 0.4 mg/dl (0.2-1); BLOOD UREA NITROGEN 10 mg/dl (7-18); CALCIUM 9.8 mg/dl (8.5-10); CHLORIDE 104 mmol/L (98-107); CO2 21 mmol/L (21-32); CREATININE 0.8 mg/dl (0.55-1.3); GLUCOSE,RANDOM 107 mg/dl (74-106); POTASSIUM 3.7 mmol/L (3.5-5.1); SGOT/AST 27 U/L (15-37); SGPT/ALT 24 U/L (13-61); SODIUM 136 mmol/L (136-145); TOT PROT 8.1 g/dl (6.4-8.2)
[2018-07-10] MEDS ORDERED: METOCLOPRAMIDE HCL INJECTION 10 MG/2 ML VIAL IVPUSH ONE (11:28)
[2018-07-10] MEDS ORDERED: METOCLOPRAMIDE HCL INJECTION 10 MG/2 ML VIAL ONE (11:31)
[2018-07-10 11:57] VITALS: TEMP 97.7
== END 2018-07-10 12:25 | disposition home or self-care (01) ==
LOC: FER 10:04 → SUPCPDRO 10:04 → FER 12:25
PROC: 3E033GC Introduction of Other Therapeutic Substance into Peripheral Vein, Percutaneous Approach (ICD-10-PCS; principal; 2018-07-10)
DX: R11.10 Vomiting, unspecified (principal); Z72.0 Tobacco use
CPT/HCPCS: 36415; 71045-TC-FY; 80053; 83690; 85025; 87389; 87804; 96365; 96375; 99283-25